=== PATIENT | male | born 1990 | race Caucasian/White ===

== ENCOUNTER 2017-01-31 22:30 | Emergency (ER) | payer OTHER ==
[2017-02-01 02:17] VITALS: BP 134/65
== END 2017-02-01 02:17 | disposition home or self-care (01) ==
LOC: ED 22:30
DX: S61.012A Laceration without foreign body of left thumb without damage to nail, initial encounter (principal); G89.29 Other chronic pain; E66.9 Obesity, unspecified; W26.0XXA Contact with knife, initial encounter; Y93.89 Activity, other specified; Y99.8 Other external cause status; Y92.89 Other specified places as the place of occurrence of the external cause
CPT/HCPCS: J2001

== ENCOUNTER 2017-02-23 22:24 | Emergency (ER) | payer OTHER ==
[2017-02-24 00:45] VITALS: BP 138/88
== END 2017-02-24 00:45 | disposition home or self-care (01) ==
LOC: ED 22:24
DX: S61.012D Laceration without foreign body of left thumb without damage to nail, subsequent encounter (principal); X58.XXXD Exposure to other specified factors, subsequent encounter; Y92.89 Other specified places as the place of occurrence of the external cause; Y99.8 Other external cause status